=== PATIENT | female | born 1975 | race African-American/Black ===

== ENCOUNTER 2021-01-17 13:30 | Emergency (ER) | payer MEDICAID, OTHER ==
[~2021-01-17] VITALS: Ht 162.6 cm; Wt 129.0 kg
[2021-01-17] MEDS ORDERED: NALOXONE HCL 1 MG/ML 2ML VIAL IV ONE (16:45)
[2021-01-17] MEDS ORDERED: SODIUM CHLORIDE 0.9% 1,000 ML IV ONE ×2 (16:45→17:00)
[2021-01-17 17:45] LABS: BASOPHILS % 0.7 % (0.0-2.0); HEMATOCRIT. 31.1 % (36.0-48.0); HEMOGLOBIN. 9.7 g/dL (12.0-16.0); LYMPHOCYTES % 7.4 % (20.0-50.0); MEAN CORPUSCULAR HEMOGLOBIN 20.3 pg (28.0-32.0); MEAN CORPUSCULAR VOLUME 65.4 fL (81.0-99.0); MEAN PLATELET VOLUME 8.5 fl (7.4-10.4); MONOCYTES % 6.4 % (2.0-8.0); NEUTROPHILS % 85.5 % (40.0-76.0); PLATELET 463 x1000/uL (130-400); RED BLOOD CELL COUNT 4.76 mill/uL (4.2-5.4); RED CELL DISTRIBUTION WIDTH 17.5 % (11.6-14.6)
[2021-01-17 17:46] LABS: CLARITY URINE CLEAR (CLEAR); COLOR URINE YELLOW (YELLOW); KETONES URINE NEGATIVE (NEGATIVE); LEUKOCYTE ESTERASE URINE NEGATIVE (NEGATIVE); NITRITE URINE NEGATIVE (NEGATIVE); OCCULT BLOOD URINE NEGATIVE (NEGATIVE); PROTEIN URINE TRACE (NEGATIVE); SPECIFIC GRAVITY URINE 1.023 (1.005-1.030); UROBILINOGEN URINE 0.2 E.U./dL (0.2-1.0)
[2021-01-17 17:51] LABS: CHLORIDE 109 mEq/L (98-107)
[2021-01-17 17:53] LABS: INR 1.1; PROTHROMBIN TIME 11.6 sec (9.6-11.0)
[2021-01-17 17:55] LABS: ETHANOL BLOOD < 10 mg/dL
[2021-01-17 17:56] LABS: HCG SCREEN NEGATIVE
[2021-01-17 18:20] LABS: PLATELET ESTIMATE INCREASED
[2021-01-17 19:04] LABS: *AMPHETAMINES SCREEN URINE NEGATIVE (NEGATIVE); *BARBITURATES SCREEN URINE NEGATIVE (NEGATIVE); *BENZODIAZEPINES SCREEN URINE NEGATIVE (NEGATIVE); *COCAINE SCREEN URINE NEGATIVE (NEGATIVE)
[2021-01-17 19:05] LABS: CANNABINOID URINE SCREEN NEGATIVE (NEGATIVE); METHADONE URINE SCREEN NEGATIVE (NEGATIVE); OPIATES URINE SCREEN NEGATIVE (NEGATIVE); PHENCYCLIDINE URINE SCREEN NEGATIVE (NEGATIVE)
[2021-01-17] MEDS ORDERED: MANNITOL 20% 250 ML IV ONE (19:45)
[2021-01-17] MEDS ORDERED: DEXAMETHASONE 10 MG/ML VIAL IV ONE (19:45)
[2021-01-17 20:00] VITALS: BP 123/56
[2021-01-17] MEDS ORDERED: MANNITOL 20% 250 ML IV NR (20:00)
[2021-01-17 20:36] LABS: INR 1.1; PROTHROMBIN TIME 11.8 sec (9.6-11.0)
[2021-01-17] MEDS ORDERED: IOHEXOL-350 100 ML BOTTLE ONE (20:55)
== END 2021-01-17 20:35 | disposition short-term general hospital (02) ==
LOC: ER 13:30
DX: I67.82 Cerebral ischemia (principal); G93.40 Encephalopathy, unspecified; D64.9 Anemia, unspecified; I49.9 Cardiac arrhythmia, unspecified; Z88.6 Allergy status to analgesic agent; Z86.73 Personal history of transient ischemic attack (TIA), and cerebral infarction without residual deficits; Z20.822 Contact with and (suspected) exposure to COVID-19
CPT/HCPCS: 36415; 70450; 70496; 70498; 71045; 80053; 80305; 80307; 80320; 80329; 81003; 82140; 82962; 83605; 83721; 83735; 83880; 84145; 84484; 84703; 85025; 85610; 87040; 87086; 87426; 93005; 96361; 96365; 96375; 99291; J1100; J2310; J7030; Q9967; G0480